=== PATIENT | male | born 1950 | race Caucasian/White ===

== ENCOUNTER → 2017-08-13 | Outpatient (CLI) | payer OTHER ==
[~2017-08-13] MED LIST: IOPAMIDOL (ISOVUE 370) 100 ML BTL IV ONE
== END ==
LOC: FIMAGING 12:09
PROVIDERS: ATTEND Surgery
DX: I72.4 Aneurysm of artery of lower extremity (principal); N40.0 Benign prostatic hyperplasia without lower urinary tract symptoms; R91.1 Solitary pulmonary nodule; Z98.890 Other specified postprocedural states
CPT/HCPCS: 75635; Q9967; 82565-PO

== ENCOUNTER → 2017-08-17 | Outpatient (CLI) | payer OTHER | LOC: FIMAGING 09:35 | PROVIDERS: ATTEND Surgery | DX: Z01.818 Encounter for other preprocedural examination (principal); I80.223 Phlebitis and thrombophlebitis of popliteal vein, bilateral ==

== ENCOUNTER 2017-08-21 10:00 | Inpatient (IN) | payer OTHER ==
[2017-08-21] MEDS ORDERED: ceFAZolin 2 GM/DEXTROSE 100 ML IV ONE (13:16)
[2017-08-21] MEDS ORDERED: LR 1,000 ML IV ONE (13:21)
[2017-08-21] MEDS ORDERED: LIDOCAINE 1% 2 ML INJ ID PRN (13:21)
[2017-08-21 14:35] LABS: PLATELET COUNT 196 10^3/uL (150-400)
--- NOTE | 2017-08-21 15:03 | PDHPUP ---
History & Physical Update H&P update statement: This history and physical update is based on an assessment of the patient which was completed after admission or registration (within 24 hours), but prior to the surgery/procedure. H&P update: H&P reviewed & patient examined, no change in patient's condition since H&P completed
--- NOTE | 2017-08-21 15:23 | PDANEPAE ---
ANE History of Present Illness popliteal artery aneurysm bypass ANE Past Medical History - Cardiovascular History Hx Hypertension: Yes Hx Arrhythmias: No Hx Chest Pain: No Hx Coronary Artery / Peripheral Vascular Disease: No Hx CHF / Valvular Disease: No Hx Palpitations: No - Pulmonary History Hx COPD: No Hx Asthma/Reactive Airway Disease: No Hx Recent Upper Respiratory Infection: No Hx Oxygen in Use at Home: No Hx Sleep Apnea: No Sleep Apnea Screening Result - Last Documented: Positive - Neurologic History Hx Cerebrovascular Accident: No Hx Seizures: No Hx Dementia: No - Endocrine History Hx Diabetes: No Hypothyroid: No Hyperthyroid: No Obesity: moderate - Renal History Hx Renal Disorders: No - Liver History Hx Hepatic Disorders: No - Neurological & Psychiatric Hx Hx Neurological and Psychiatric Disorders: No - Cancer History Hx Cancer: No - Congenital Disorder History Hx Congenital Disorders: Yes Congenital History Comment: AAA - GI History GERD: no Hx Gastrointestinal Disorders: No - Other Health History Other Health History: chronic hyponatremia. Borderline hypokalemia on this admission - Chronic Pain History Chronic Pain: No - Surgical History Prior Surgeries: back surgery. bilateral rotator cuff sx. L knee screw ANE Review of Systems Review of Systems: - Exercise capacity METS (RN): 4 METS ANE Patient History - Allergies Allergies/Adverse Reactions: No Known Allergies Allergy (Verified 08/20/17 15:01) - Home Medications Home Medications: Ascorbic Acid [Vitamin C 500 mg (*)] 500 mg PO DAILY 08/17/17 [Last Taken 2 Days Ago ~08/19/17] Aspirin [Aspirin 81mg (*)] 81 mg PO DAILY 08/17/17 [Last Taken 08/19/17] Atorvastatin Calcium [Lipitor 20 mg (*)] 20 mg PO DAILY 08/17/17 [Last Taken 04/08] Cholecalciferol Vit D3 [Vitamin D3 (*)] 1,000 units PO DAILY 08/17/17 [Last Taken 2 Days Ago ~08/19/17] Glucosamine Sulfate [Glucosamine Sulfate 500 MG (*)] 500 mg PO DAILY 08/17/17 [ Last Taken 2 Days Ago ~08/19/17] Herbals/Supplements -Info Only 1 each PO DAILY 08/17/17 [Last Taken 2 Days Ago ~ 08/19/17] Lisinopril/Hydrochlorothiazide [Zestoretic 20-25 mg Tablet] 1 each PO DAILY [Last Taken 08/20/17] Hydrocodone-Acetamin 5-300 mg 1 - 2 tab PO QID PRN 08/21/17 [Last Taken Unknown] - NPO status NPO Since - Liquids (Date): 08/21/17 NPO Since - Liquids (Time): 05:30 NPO Since - Solids (Date): 08/20/17 NPO Since - Solids (Time): 19:30 - Anes Hx Anes Hx: no prior problems - Smoking Hx Smoking Status: Never smoked Marijuana use: No - Alcohol Use Alcohol Use: Other (3 drinks/day) - Family Anes Hx Family Anes Hx: none Family Hx Anesthesia Complications: none ANE Labs/Vital Signs - Labs Result Diagrams: 08/21/17 14:10 08/21/17 14:10 - Vital Signs Blood Pressure: 134/95 Heart Rate: 94 Respiratory Rate: 16 O2 Sat (%): 92 Height: 170.18 cm Weight: 90.718 kg ANE Physical Exam - Airway Neck exam: FROM Mallampati Score: Class 2 Mouth exam: normal dental/mouth exam - Pulmonary Pulmonary: clear to auscultation - Cardiovascular Cardiovascular: regular rate and rhythym - ASA Status ASA Status: II ANE Anesthesia Plan Anesthesia Plan: general endotracheal anesthesia
[2017-08-21] MEDS ORDERED: MIDAZOLAM 2 MG/2 ML VIAL IVP ONE (16:12)
[2017-08-21] MEDS ORDERED: PROTAMINE SULFATE 50 MG/5 ML VIAL IVP ONE ×2 (16:14→19:53)
[2017-08-21] MEDS ORDERED: PAPAVERINE HCL 60 MG/2 ML SDV ONE (16:15)
[2017-08-21] MEDS ORDERED: fentaNYL 250 MCG/5 ML INJ ONE ×2 (16:18→17:26)
[2017-08-21] MEDS ORDERED: PROPOFOL 200 MG/20 ML VIAL ONE ×2 (16:19→21:02)
[2017-08-21] MEDS ORDERED: DEXAMETHASONE 4 MG/ML VIAL ONE (16:19)
[2017-08-21] MEDS ORDERED: ROCURONIUM 50 MG/5 ML VIAL ONE (16:19)
[2017-08-21] MEDS ORDERED: PHENYLEPHRINE HCL 100 MCG/ML SYR ONE (17:16)
[2017-08-21] MEDS: BUPIVACAINE 0.25% 30 ML SDV ONE ×2 (17:34→22:18)
[2017-08-21] MEDS ORDERED: HEPARIN 1000 UNIT/1 ML MDV ONE (17:59)
[2017-08-21] MEDS ORDERED: HEPARIN 10,000 UNIT/10 ML MDV (1,000 UNIT/ML) ONE (18:00)
[2017-08-21] MEDS ORDERED: ROCURONIUM 100 MG/10 ML VIAL ONE (18:20)
[2017-08-21] MEDS ORDERED: POTASSIUM Cl (KCl) 10 MEQ in NS 100 ML IV SCH (19:00)
[2017-08-21] MEDS ORDERED: ONDANSETRON 4 MG/2 ML VIAL ONE (19:07)
[2017-08-21] MEDS ORDERED: SUGAMMADEX SODIUM 200 MG/2 ML VIAL IVP ONE (19:40)
[2017-08-21] MEDS ORDERED: THROMBIN (BOVINE) 20,000 UNIT SPRAY TP ONE (19:43)
[2017-08-21] MEDS: IOTHALAMATE MEG (CONRAY) 50 ML VIAL IV ONE ×2 (19:56→20:18)
[2017-08-21] MEDS ORDERED: ONDANSETRON 4 MG/2 ML VIAL IVP PRN ×2 (19:59→20:22)
[2017-08-21] MEDS ORDERED: fentaNYL 100 MCG/2 ML INJ IVP PRN (19:59)
[2017-08-21] MEDS ORDERED: NALOXONE HCL 0.4 MG/ML INJ IVP PRN (19:59)
[2017-08-21] MEDS ORDERED: NS W/ 20 KCl/L 1,000 ML IV SCH (20:30)
--- NOTE | 2017-08-21 20:30 | POSTOPPROG ---
Post Op Note Date of Operation: 08/21/17 Surgeon: Reuben Mckeon Compliance Auditor: Mica Gao Anesthesiologist: Waqas Montanez Anesthesia: GET(General Endotracheal) Pre-op Diagnosis: Right popliteal aneurysm Post-op Diagnosis: same Procedure: R SAILAJA bypass c reverse saphenous vein graft, intraop angiogram Findings: good pulse in graft Inf/Abcess present in the surg proc area at time of surgery?: No EBL: 250cc Complications: none Specimen(s): none
[2017-08-21] MEDS: HYDROmorphONE/DILAUDID 1 MG/ML INJ IVP PRN ×3 (21:25→22:23)
--- NOTE | 2017-08-21 22:21 | POSTANESTH ---
Post Anesthetic Evaluation Cardiovascular Status: Similar to Pre-Op Cond Respiratory Status: Normal, Stable Level of Consciousness/Mental Status: Can Participate in Eval Pain Control: Adequate, Prn Tx Ordered Nausea/Vomiting Control: Adequate, Prn Tx Ordered Complications Possibly Related to Anesthesia: None Noted
[2017-08-21] MEDS: DOCUSATE SODIUM 100 MG CAP PO SCH (22:46)
[2017-08-21] MEDS: OXYCODONE/APAP 5/325 TAB PO PRN (22:46)
[2017-08-22] MEDS: HYDROmorphONE/DILAUDID 1 MG/ML INJ IVP PRN (01:38)
[2017-08-22] MEDS: OXYCODONE/APAP 5/325 TAB PO PRN ×5 (04:20→21:23)
[2017-08-22] MEDS: LISINOPRIL/HCTZ 10/12.5 MG 1 EA TAB PO SCH (09:25)
[2017-08-22] MEDS: DOCUSATE SODIUM 100 MG CAP PO SCH ×2 (09:26→20:22)
[2017-08-22] MEDS: ASCORBIC ACID 500 MG TAB PO SCH (09:26)
[2017-08-22] MEDS: ASPIRIN 325 MG TAB PO SCH (09:26)
[2017-08-22] MEDS: ENOXAPARIN 40 MG/0.4 ML SYR SC SCH (09:26)
[2017-08-22] MEDS: CHOLECALCIFEROL VIT D3 1,000 UNITS TAB PO SCH (09:26)
[2017-08-22] MEDS: ATORVASTATIN CALCIUM 20 MG TAB PO SCH (09:26)
[2017-08-22] MEDS: GLUCOSAMINE SULF 500 MG CAP PO SCH (09:26)
--- NOTE | 2017-08-22 11:31 | SOAPPROG ---
SOAP Progress Note Assessment/Plan: Assessment: STATUS POST LIGATION AND BYPASS OF RIGHT POPLITEAL ANEURYSM DOING WELL, VITAL SIGNS STABLE, AFEBRILE, NO REAL PAIN PULSES SOMEWHAT DECREASED ON THE RIGHT COMPARED TO THE LEFT WOUND OKAY Plan: AMBULATE/HOME 1-2 DAYS 08/22/17 11:30 Objective: Vital Signs Temp Pulse Resp BP Pulse Ox 36.8 C 62 20 137/88 H 97 08/22/17 07:39 08/22/17 07:39 08/22/17 07:39 08/22/17 09:25 08/22/17 07:39 Laboratory Results 08/22/17 05:30 08/22/17 05:30 08/21/17 08/22/17 08/23/17 05:59 05:59 05:59 Intake Total 2528 Output Total 252 Balance 2276 ICD10 Worksheet Patient Problems: Problems Problem Status Onset Aneurysm of right popliteal artery Acute - ICD10 Problem Qualifiers (1) Aneurysm of right popliteal artery
--- NOTE | 2017-08-22 14:11 | ASMTCMCOM ---
CM Note CM Note Notes: Chart reviewed, Patient is s/p fempop bypass, Clinically doing well. Per PT recommending [facility] as trasition to stand requires assist. CM to follow. Plan: To dc to home with services. Date Signed: 08/22/2017 02:11 PM Electronically Signed By:Iris Luque RN
[2017-08-23] MEDS: OXYCODONE/APAP 5/325 TAB PO PRN ×4 (01:16→14:32)
--- NOTE | 2017-08-23 07:46 | PDMN ---
Medical Necessity Medical necessity: [facility] IP only surgery; cpt 98177 Cardiovascular Surgery ( Popliteal Artery Bypass)
--- NOTE | 2017-08-23 07:50 | SOAPPROG ---
[place] Progress Note Assessment/Plan: Assessment: 66 y/o M s/p R popliteal aneurysm bypass c reverse saphenous vein graft POD #2 S: Doing well. C/o soreness, but pain well controlled. Has been up walking with PT as well as by himself. O: Alert Afebrile RRR No increased WOB R leg: dressing cdi, sensation intact, good pedal pulses Plan: Continue to work with PT. Likely home tomorrow. 08/23/17 07:47 Objective: Vital Signs Temp Pulse Resp BP Pulse Ox 36.8 C 71 17 110/69 95 08/23/17 04:00 08/23/17 04:00 08/23/17 04:00 08/23/17 04:00 08/23/17 04:00 Laboratory Results 08/22/17 05:30 08/22/17 05:30 08/22/17 08/23/17 08/24/17 05:59 05:59 05:59 Intake Total 2520 370 Output Total 252 1050 Balance 3891 -046 ICD10 Worksheet Patient Problems: Problems Problem Status Onset Aneurysm of right popliteal artery Acute
[2017-08-23] MEDS: ATORVASTATIN CALCIUM 20 MG TAB PO SCH (08:27)
[2017-08-23] MEDS: ASPIRIN 325 MG TAB PO SCH (08:27)
[2017-08-23] MEDS: ASCORBIC ACID 500 MG TAB PO SCH (08:28)
[2017-08-23] MEDS: CHOLECALCIFEROL VIT D3 1,000 UNITS TAB PO SCH (08:28)
[2017-08-23] MEDS: ENOXAPARIN 40 MG/0.4 ML SYR SC SCH (08:28)
[2017-08-23] MEDS: DOCUSATE SODIUM 100 MG CAP PO SCH ×2 (08:28→20:26)
[2017-08-23] MEDS: LISINOPRIL/HCTZ 10/12.5 MG 1 EA TAB PO SCH (08:29)
--- NOTE | 2017-08-23 10:37 | ASMTCMCOM ---
CM Note CM Note Notes: CM spoke w/pt, offered homecare per PT recommendation but pt declines. States he has walker at home and roomates that are willing to assist him, CM available for any changes. DC Plan: Independent Date Signed: 08/23/2017 10:36 AM Electronically Signed By:Kia Lacey RN
[2017-08-23] MEDS ORDERED: NS 1,000 ML IV SCH (11:00)
[2017-08-23] MEDS: GLUCOSAMINE SULF 500 MG CAP PO SCH (11:39)
[2017-08-23] MEDS: oxyCODONE IR 5 MG TAB PO PRN (18:35)
[2017-08-24] MEDS: oxyCODONE IR 5 MG TAB PO PRN ×2 (00:56→11:31)
--- NOTE | 2017-08-24 02:03 | GOP ---
[f rep st] OPERATIVE REPORT DATE OF OPERATION: 08/21/2017 SURGEON: Reuben Mckeon MD NEEDLE STRAIGHTENER: Mica Gao, ZAYRA ANESTHESIA: Dr. Montanez. PREOPERATIVE DIAGNOSIS: Right popliteal artery aneurysm. POSTOPERATIVE DIAGNOSIS: Right popliteal artery aneurysm. PROCEDURE PERFORMED: Right femoral-popliteal bypass with reverse saphenous vein and ligation of popliteal aneurysm with operative angiography. FINDINGS: 5CM POPLITEAL ANEURYSM WITH SOME COMPROMISED RUNOFF ESTIMATED BLOOD LOSS: Less than 300 cc. Taken to recovery room in good condition. INDICATIONS: The patient has had a palpable large aneurysm. He had relatively no symptoms in his right foot, although he had decreased pedal pulses compared to the left. CT angiogram showed some open runoff to his foot. Risks and options have been fully discussed and he wishes to proceed with repair of a 5 cm popliteal artery aneurysm. DESCRIPTION OF PROCEDURE: Patient taken to the operating room where he received a satisfactory general endotracheal anesthesia by Dr. Montanez. He was placed in the supine position. Legs were prepped and draped in usual sterile fashion. A short incision was made in the adductor canal. Dissection extended down through the adductor canal. The fascia was incised, and the proximal popliteal artery was dissected free and controlled with vessel loops. It was dissected down to the start of the aneurysm behind the knee. A second incision was made in the popliteal space below the knee. Dissection extended down into the hamstring tendons down to the popliteal artery. This was dissected free and controlled with vessel loops. Dissection extended up behind the knee to the start of the popliteal aneurysm. After adequate exposure and control were obtained, attention was then turned to the greater saphenous vein. Ultrasound mapping was used to identify the vein and a longitudinal incision was made on the inside of the right leg and the saphenous vein was dissected free from the fossa ovalis down to the mid thigh to obtain adequate length for the bypass graft. All branches were hemoclipped and divided. The vessel was ligated distally with 2-0 silk ties. It was expanded with heparin flush and any remaining bleeding sites were controlled with silk ties or hemoclips. The vessel was then divided at the fossa ovalis and ligated there with 2-0 silk sutures. The distal anastomosis was made in the side of the popliteal artery. There was some backflow from distally. There was good runoff from above. The popliteal artery was then doubly ligated at the base of the aneurysm proximally and the artery was divided. An end-to-end anastomosis was made with a running 6 -0 Prolene suture to the reverse saphenous vein graft. The patient had been systemically heparinized prior to this. The graft was flushed with heparin saline. Suture line appeared to be hemostatic. The vein graft was then tunneled in a natural pathway along the vessels up to the adductor canal incision, and there again an end-to-side anastomosis was made to the proximal popliteal artery with a 5-0 Prolene suture. After the 1st anastomosis, it was felt that the vessel was too long and the suture line was taken down. The saphenous vein graft was shortened and then a repeat anastomosis was created using a running 5-0 Prolene suture. The vessels were flushed prior to completion of the suture line and flow was established. There was an excellent pulse throughout the graft and in the popliteal artery down to the bifurcation. Pedal pulses were difficult to feel and required Doppler at 1st. Because of this, an angiogram was done which showed an open bypass graft going to the popliteal artery and then in to 2 vessel runoff which appeared to be somewhat sluggish. The catheter was removed from the vein bypass graft and the hole was closed with a 7-0 Prolene mattress suture. Wounds were then closed with 2-0 Vicryl for the fascia, 3-0 Vicryl for the subcutaneous and skin lina for the skin. The saphenous vein harvest wound was closed with a running 2-0 Vicryl suture, with skin lina for the skin. All wounds were infiltrated with 0.5% Marcaine and dressed. He tolerated procedure well. He was taken to recovery room in good condition. There were no complications. /[id number]/MODL MTDD
[2017-08-24] MEDS: ENOXAPARIN 40 MG/0.4 ML SYR SC SCH (08:15)
[2017-08-24] MEDS: DOCUSATE SODIUM 100 MG CAP PO SCH (08:16)
[2017-08-24] MEDS: CHOLECALCIFEROL VIT D3 1,000 UNITS TAB PO SCH (08:16)
[2017-08-24] MEDS: GLUCOSAMINE SULF 500 MG CAP PO SCH (08:16)
[2017-08-24] MEDS: ASPIRIN 325 MG TAB PO SCH (08:16)
[2017-08-24] MEDS: LISINOPRIL/HCTZ 10/12.5 MG 1 EA TAB PO SCH ×2 (08:16→08:24)
[2017-08-24] MEDS: ATORVASTATIN CALCIUM 20 MG TAB PO SCH (08:16)
[2017-08-24] MEDS: ASCORBIC ACID 500 MG TAB PO SCH (08:17)
[2017-08-24 08:31] VITALS: BP 118/79
--- NOTE | 2017-09-17 22:21 | GDS ---
[f rep st] DISCHARGE SUMMARY DISCHARGE DIAGNOSIS: Right popliteal artery aneurysm. PROCEDURES: Right femoral-popliteal bypass with reverse saphenous vein graft and ligation of poplite al aneurysm with intraoperative angiography. INTRAOPERATIVE FINDINGS: Patient was found to have a 5 cm popliteal aneurysm with some compromise ru noff. HOSPITAL COURSE: The patient is a 66-year-old male who was found to have a right popliteal artery an eurysm, underwent repair as described above. The procedure was uncomplicated, and he tolerated it we ll. Patient was initially kept on bedrest. These precautions were listed, and he worked with Physical Th erapy and Occupational Therapy. His wounds remained intact, and he had palpable pedal pulses. His p ain was controlled, and he was tolerating a regular diet. He was independently ambulating. DISCHARGE INSTRUCTIONS: Patient was discharged to home in stable condition with plans for outpatient followup. All limitations were discussed. Of note, patient declined recommendations for physical t herapy at home and said he already had a walker at home to be used as needed. /[id number]/MODL
== END 2017-08-24 11:45 | disposition home or self-care (01) | DRG 254 ==
LOC: F2W 12:43 → F2N 21:15 → F3E 08-22 16:35
PROVIDERS: ADMIT Surgery; ATTEND Surgery
PROC: 041K09L Bypass Right Femoral Artery to Popliteal Artery with Autologous Venous Tissue, Open Approach (ICD-10-PCS; principal; 2017-08-21 14:30)
DX: I72.4 Aneurysm of artery of lower extremity (principal); I10 Essential (primary) hypertension; E78.5 Hyperlipidemia, unspecified; M17.10 Unilateral primary osteoarthritis, unspecified knee; F12.90 Cannabis use, unspecified, uncomplicated; E87.6 Hypokalemia
CPT/HCPCS: 97116-GP; 97161-GP; 97166-GO; 97535-GO; G8978-GP-CJ; G8979-GP-CI; G8987-GO-CJ; G8988-GO-CI; J0690; J1100; J1170; J1644; J1650; J2250; J2370; J2405; J2440; J2704; J2720; J3010; J3480; Q9961